=== PATIENT | male | born 1995 | race Caucasian/White ===

== ENCOUNTER 2022-10-04 20:30 | Emergency (ER) | payer OTHER ==
[~2022-10-04] VITALS: Ht 182.9 cm; Wt 95.2 kg
[2022-10-04] MEDS ORDERED: Naltrexone HCl50 MG PO (23:26)
[2022-10-04] MEDS ORDERED: QUET25 PO (23:26)
== END 2022-10-04 23:39 | disposition home or self-care (01) ==
LOC: ER 20:30
DX: F15.951 Other stimulant use, unspecified with stimulant-induced psychotic disorder with hallucinations (principal); F10.90 Alcohol use, unspecified, uncomplicated
CPT/HCPCS: 99283